=== PATIENT | male | born 1955 | race Caucasian/White ===

== ENCOUNTER 2019-09-08 17:49 | Emergency (ER) | payer BC ==
--- OUTSIDE RECORDS SUMMARY | 2019-09-08 17:51 | XMS REPORT | Summary of Care ---
:1955 Author Name SHREE MEHTA D.O. Address [facility] Unavailable , Care Team Providers Name Role Phone SHREE MEHTA D.O. 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 Start : 23-Jun-2017 Active Cephalexin 500 MG Oral Capsule TAKE 1 CAPSULE 4 TIMES DAILY UNTIL GONE. Quantity: 40 Refills: 0 SHREE MEHTA D.O. Start : 21-Oct-2017 Active Allergies and Adverse Reactions Name Dates Details Allergy history not documented Status: Procedures Procedure Dates Details Occupational Therapy Date: 21-Oct-2017 [U] XRAY WRIST MIN 3 VWS LEFT [id number] Date: 11-Dec-2017 Immunization Name Dates Details Immunizations not documented Social History Name Dates Details Unknown if ever smoked Vital Signs Date Test Result Details No Known Vitals to report Results Date Description Value Details [id number] [U] XRAY WRIST MIN 3 VWS LEFT [id number] XR WRIST MIN 3 VWS LEFT EXAM: XR WRIST MIN 3 VWS LEFT DATE: 11/18/2017 at 1034 hours. 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 COMPARISON: Left wrist radiograph on 10/21/2017. TECHNIQUE: PA, lateral and oblique radiographs of the left wrist. 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 Again seen is a DVR plate with screws and graft material for fixation of an intra-articular, mildly comminuted distal radial fracture. Alignment is overall unchanged compared to prior. A volar plate with screws is again seen at the distal ulnar shaft. Alignment is unchanged. No hardware complication is detected.A suture anchor is again seen at the distal ulna. Posttreatment changes are seen at the third metacarpal from prior dorsal spanning plate fixation. There is persistent soft tissue swelling throughout the visible extremity. IMPRESSION:Overall unchanged appearance following plate and screw fixation of the distal radius and distal ulna when compared to 10/21/2017. 11/18/2017 2:12 PM CDT Peyton Ardon Plan of Care Name Dates Details Planned Observations Planned Goals not documented Planned Encounters Appointment; SHREE MEHTA D.O. On: 16-Dec-2017 10:45 Interventions Provided Labs/Procedures/Imaging[U] XRAY WRIST MIN 3 VWS LEFT [id number]; To Be Done: 16 Dec 2017 Instructions Name Dates Details Instructions not documented Encounters Appointment; MELE STEPHENS P.A. On: 29-Jun-2017 11:00 Encounter Diagnosis: Problem not documented Appointment; SHREE MEHTA D.O. On: 13-Jul-2017 11:30 Encounter Diagnosis: Problem not documented Appointment; MELE STEPHENS P.A. On: 03-Aug-2017 11:00 Encounter Diagnosis: Problem not documented Appointment; SHREE MEHTA D.O. On: 02-Sep-2017 11:30 Encounter Diagnosis: Problem not documented Appointment; MELE STEPHENS P.A. On: 28-Sep-2017 11:15 Encounter Diagnosis: Problem not documented Appointment; SHREE MEHTA D.O. On: 05-Oct-2017 14:00 Encounter Diagnosis: Problem not documented Appointment; SHREE MEHTA D.O. On: 21-Oct-2017 13:45 Encounter Diagnosis: Problem not documented Appointment; MELE STEPHENS P.A. On: 18-Nov-2017 11:00 Encounter Diagnosis: Problem not documented Appointment; SHREE MEHTA D.O. On: 16-Dec-2017 10:45 Encounter Diagnosis: Problem not documented
--- OUTSIDE RECORDS SUMMARY | 2019-09-08 17:51 | XMS REPORT | Summary of Care ---
:1955 Author Organization [facility] - Health Address [address] [id number] Care Team Providers Name Role Phone Wilfredo Francois Primary Care Provider Encounter Details Date Type Department Care Team Description 05/12/2019 Orders Only [facility] Doctor Unassigned, No [address] [facility] Name [address] [place] [phone] [phone] Allergies Not on Filedocumented as of this encounter (statuses as of 05/12/2019) Medications Not on filedocumented as of this encounter (statuses as of 05/12/2019) Active Problems Not on filedocumented as of this encounter (statuses as of 05/12/2019) Social History Tobacco Use Types Packs/Day Years Used Date Never Assessed Sex Assigned at Date Recorded Not on file Job Start Date Occupation Industry Not on file Not on file Not on file Travel History Travel Start Travel End No recent travel history available. documented as of this encounter Last Filed Vital Signs Not on filedocumented in this encounter Plan of Treatment Health Maintenance Due Date Last Done Comments HEPATITIS C (HCV) SCREEN 1955 DTaP,Tdap,and Td Vaccines (1 - 1976 Tdap) COLONOSCOPY 2007 Zoster Recombinant Vaccine 2007 (SHINGRIX) (1 of 2) INFLUENZA VACCINE (#1) 2019 PNEUMOCOCCAL 0-64 YEARS COMBINED Aged Out No longer eligible based on SERIES patient's age to complete this topic documented as of this encounter Procedures Procedure Name Priority Date/Time Associated Diagnosis Comments [facility] PATIENT FINANCIAL Routine 05/12/2019 7:06 PM POLICY CDT NO SHOW OR MISSED Routine 05/12/2019 7:06 PM APPOINTMENT POLICY CDT ACKNOWLEDGEMENT NOTICE OF PRIVACY Routine 05/12/2019 7:05 PM PRACTICES CDT CONSENT/REFUSAL FOR Routine 05/12/2019 7:05 PM DIAGNOSIS AND TREATMENT CDT ASSIGNMENT OF BENEFITS Routine 05/12/2019 7:05 PM CDT documented in this encounter Results Not on filedocumented in this encounter Insurance Payer Benefit Plan Subscriber ID Effective Dates Phone Address Type / Group [facility] [id number] 2017-Caroline [phone] [address] PPO/POS [facility] [id number] [place] [address] documented as of this encounter Advance Directives Name Relationship Healthcare Agent Communication Relationship Kira Newell Spouse Primary healthcare agent
--- OUTSIDE RECORDS SUMMARY | 2019-09-08 17:51 | XMS REPORT ---
:1955 [facility] Address [address] [place] [address] Dr. Weiss[address] [place] [address] Care Team Providers Name Role Phone Unavailable Unavailable Unavailable Problems This patient has no known problems. Allergies, Adverse Reactions, Alerts This patient has no known allergies or adverse reactions. Medications This patient has no known medications.
--- OUTSIDE RECORDS SUMMARY | 2019-09-08 17:52 | XMS REPORT | Summary of Care ---
:1955 Author Organization [facility] Address [address] [place] [address] Care Team Providers Name Role Phone Wilfredo Francois Primary Care Provider Reason for Visit Reason Comments Toe Pain lft great toe Encounter Details Date Type Department Care Team Description 05/12/2019 Urgent Care [facility] Unknown, Attending Acute gout involving Urgent Care Jessica Aquino PA-C [address] [place] [address] [address] [place] [address] toe of left foot, [address], unspecified cause [address] (Primary Dx) [place] [address] Allergies No Known Allergiesdocumented as of this encounter (statuses as of 05/12/2019) Medications Medication Sig Dispensed Refills Start Date End Date Status naproxen 500 mg Take 1 tablet by 60 tablet 2 05/12/2019 Active tabletIndications: mouth 2 (two) Acute gout involving times daily with toe of left foot, meals. unspecified cause colchicine (COLCRYS) Take 1 tablet by 3 tablet 0 05/12/2019 Active 0.6 mg mouth daily. tabletIndications: Patient to take Acute gout involving 1.2 mg po x 1, toe of left foot, then 0.6 mg 1 hour unspecified cause later documented as of this encounter (statuses as of [...] of this encounter Last Filed Vital Signs Vital Sign Reading Time Taken Comments Blood Pressure 132/81 05/12/2019 7:26 PM CDT Pulse 83 05/12/2019 7:26 PM CDT Temperature 36.8 C (98.3 F) 05/12/2019 7:26 PM CDT Respiratory Rate 19 05/12/2019 7:26 PM CDT Oxygen Saturation 97% 05/12/2019 7:26 PM CDT Inhaled Oxygen Concentration - - Weight 100.2 kg (220 lb 12.8 oz) 05/12/2019 7:26 PM CDT Height 170.2 cm (5' 7") 05/12/2019 7:26 PM CDT Body Mass Index 34.58 05/12/2019 7:26 PM CDT documented in this encounter Patient Instructions Patient InstructionsJessica Aquino PA-C - 05/12/2019 7:00 PM CDT Gout Gout is an inflammation of a joint due to a build-up of gout crystals in the joint fluid. This occurs when there is an excessofuric acid (a normal waste product) in the body. Uric acid builds up inthe body when the kidneys are unable to filter enough of it from the blood. This may occur with age.It is also associated with kidney disease. Gout occurs more often in people with obesity, diabetes, high blood pressure,orhighlevels offats in the blood. It may run in families. Gout tends to come and go. A flare up of gout is called an attack. Drinking alcohol or eating certain foods (such asshellfish or foods with additives such as high-fructose corn syrup) may increase uric acid levels in the blood and cause a gout attack. During a gout attack, the affected joint may become a hot, red, swollen and painful. If you have hadone attack of gout, you are likely to have another. An attack of gout can be treated withmedicine.If these attacks become frequent, a daily medicine may be prescribed to help the kidneysremove uric acid from the body. Home care During a gout attack: Rest painful joints. If gout affects the joints of your foot or leg, you may want to use crutchesfor the first few days to keep from bearing weight on the affected joint. When sitting or lying down, raise the painful joint to a level higher than your heart. Apply an ice pack (ice cubes in a plastic bag wrapped in a thin towel) over the injured area for 20 minutes every 1 to 2 hours the first day for pain relief. Continue this 3 to 4 times a day for swelling and pain. Avoid alcohol and foods listed below (seePreventing attacks) during a gout attack. Drink extra fluid to help flush the uric acid through your kidneys. If you were prescribed a medicine to treat gout, take it as your healthcare provider has instructed. Don't skip doses. Takeanti-inflammatorymedicine as directed. If pain medicines have been prescribed, take them exactly as directed. Preventing attacks Minimize or avoidalcoholuse. Excess alcohol intake can cause a gout attack. Limit these foods and beverages: ? Organ meats, such as kidneys and liver ? Certain seafoods (anchovies, sardines, shrimp, scallops, doe, mackerel) ? Wild game, meat extracts and meat gravies ? Foods and beverages sweetened with high-fructose corn syrup, such as sodas Eat a healthy diet including low-fat and nonfat dairy, whole grains, and vegetables. If you areoverweight, talk to your healthcare provider about a weight reduction plan. Avoidfastingorextreme low calorie diets(less than 900 calories perday). This will increase uric acidlevels in the body. If youhave diabetesorhigh blood pressure, work with your doctor to manage these conditions. Protect the joint from injury. Trauma can trigger a gout attack. Follow-up care Follow up with your healthcare provider, or as advised. When to seek medical advice Call your healthcare provider if you have any of the following: Fever veoi815.4F (38.C)with worsening joint pain Increasing redness around the joint Pain developing in another joint Repeated vomiting, abdominal pain, or blood in the vomit or stool (black or red color) Date Last Reviewed: 11/05/201619995513-6686 [employer]. [address] [place] [address]. All rights reserved. This information is not intended as a substitute for professional medical care. Always follow your healthcare professional's instructions. Treating Gout Attacks Raising the joint above the level of your heart can help reduce gout symptoms. Gout is a disease that affects the joints. It is caused by excess uric acid in your blood that may lead to crystals forming in your joints. Left untreated, it can lead to painful foot and joint deformities and even kidney problems. But, by treating gout early, you can relieve pain and help prevent future problems. Gout can usually be treated with medicine and proper diet. In severe cases, surgery maybe needed. Gout attacks are painful and often happen more than once. Taking medicines may reduce pain and prevent attacks in the future. There are also some things you can do at home to relieve symptoms. Medicines for gout Your healthcare provider may prescribe a daily medicine to reduce levels of uric acid. Reducing youruric acid levels may help prevent gout attacks. Allopurinol is one commonly used medicine takendaily to reduce uric acid levels. Other daily medicines used to reduce uric acid levels include febuxostat , lesinurad, and probencid. Other medicines can help relieve pain and swelling during an acuteattack.Medicines such as NSAIDs (nonsteroidal anti- inflammatory medicines), steroids, and colchicine may be prescribed for intermittent use to relieve an acute gout attack. Be sure to take your medicine as directed. What you can do Below are some things you can do at home to relieve gout symptoms. Your healthcare provider may haveother tips. Rest the painful joint as much as you can. Raise the painful joint so it is at a level higher than your heart. Use ice for 10 minutes every 1 to 2 hours as possible. How can I prevent gout? With a little effort, you may be able to prevent gout attacks in the future. Here are some things you can do: Don't eat foods high in purines ? Certain meats (red meat, processed meat, turkey) ? Organ meats (kidney, liver, sweetbread) ? Shellfish (lobster, crab, shrimp, scallop, mussel) ? Certain fish (anchovy, sardine, doe, mackerel) Take any medicines prescribed by your healthcare provider. Lose weight if you need to. Reduce high fructose corn syrup in meals and drinks. Reduce or cut out alcohol, particularly beer, but also red wine and spirits. Control blood pressure, diabetes, and cholesterol. Drink plenty of water to help flush uric acid from your body. Date Last Reviewed: 12/06/201719997322-0696 [employer]. [address] [place] [address], [place] [address]. All rights reserved. This information is not intended as a substitute for professional medical care. Always follow your healthcare professional's instructions. documented in this encounter Progress Notes Jessica Aquino PA-C - 05/12/2019 7:00 PM CDT Cc: Chief Complaint Patient presents with Toe Pain lft great toe Giuseppe Newell is a 63 year old male coming in with gout flare up. Patient reports he has had these before. Patient reports it is possible he ate cheap deli meat. Patient reports he had medication in the past but ran out. Patient patient reports it is only in his left great toe where he has the pain. . HPI Allergies Giuseppe has No Known Allergies. Medications No outpatient medications prior to visit. No facility-administered medications prior to visit. Histories No past medical history on file. No past surgical history on file. Social History Socioeconomic History Marital status: Spouse name: Not on file Number of children: Not on file Years of education: Not on file Highest education level: Not on file Occupational History Not on file Social Needs Financial resource strain: Not on file Food insecurity: Worry: Not on file Inability: Not on file Transportation needs: Medical: Not on file Non-medical: Not on file Tobacco Use Smoking status: Not on file Substance and Sexual Activity Alcohol use: Not on file Drug use: Not on file Sexual activity: Not on file Lifestyle Physical activity: Days per week: Not on file Minutes per session: Not on file Stress: Not on file Relationships Social connections: Talks on phone: Not on file Gets together: Not on file Attends scientology service: Not on file Active member of club or organization: Not on file Attends meetings of clubs or organizations: Not on file Relationship status: Not on file Intimate partner violence: Fear of current or ex partner: Not on file Emotionally abused: Not on file Physically abused: Not on file Forced sexual activity: Not on file Other Topics Concern Not on file Social History Narrative Not on file No family history on file. Review of Systems Constitutional: Negative for chills, fatigue and fever. HENT: Negative for ear pain, sinus pressure and sore throat. Eyes: Negative for pain. Respiratory: Negative for chest tightness. Gastrointestinal: Negative for abdominal pain and vomiting. Genitourinary: Negative for dysuria. Musculoskeletal: Positive for gait problem and joint swelling. Negative for arthralgias. Skin: Positive for color change. Negative for rash. Neurological: Negative for weakness and headaches. Psychiatric/Behavioral: The patient is not nervous/anxious. Vital Signs BP 132/81 | Pulse 83 | Temp 36.8 C (98.3 F) (Oral) | Resp 19 | Ht 5' 7" (1.702 m) | Wt 220 lb 12.8 oz (100.2 kg) | SpO2 97% | BMI 34.58 kg/m Physical Exam Constitutional: He is oriented to person, place, and time. He appears well- developed and well-nourished. HENT: Head: Normocephalic and atraumatic. Eyes: Pupils are equal, round, and reactive to light. Conjunctivae are normal. Neck: Normal range of motion. Cardiovascular: Normal rate, regular rhythm and normal heart sounds. Pulmonary/Chest: Effort normal and breath sounds normal. Abdominal: Soft. Musculoskeletal: He exhibits edema and tenderness (L big toe). Neurological: He is alert and oriented to person, place, and time. Skin: There is erythema. Psychiatric: He has a normal mood and affect. Assessment/Plan Acute gout involving toe of left foot, unspecified cause (primary encounter diagnosis) Plan: naproxen 500 mg tablet, colchicine (COLCRYS) 0.6 mg tablet Patient education given about gout. Patient to avoid triggers. Patient to rtc if sx worsen or do not improve. This visit did not involve counseling and coordination that comprised more than 50% of the visit time. Jessica Aquino PA-C 05/12/2019 8:56 PM documented in this encounter Plan of Treatment Health Maintenance Due Date Last Done Comments HEPATITIS C (HCV) SCREEN 1955 DTaP,Tdap,and Td Vaccines (1 - 1976 Tdap) COLONOSCOPY 2007 Zoster Recombinant Vaccine 2007 (SHINGRIX) (1 of 2) INFLUENZA VACCINE (#1) 2019 PNEUMOCOCCAL 0-64 YEARS COMBINED Aged Out No longer eligible based on SERIES patient's age to complete this topic documented as of this encounter Results Not on filedocumented in this encounter Visit Diagnoses Diagnosis Acute gout involving toe of left foot, unspecified cause - Primary documented in this encounter Insurance Payer Benefit Plan Subscriber ID Effective Dates Phone Address Type / [id number] 2017-Caroline [phone] [address] PPO/POS [facility] [phone] [place] [address] (Home) [place] [address] documented as of this encounter Advance Directives Name Relationship Healthcare Agent Communication Relationship Kira Newell Spouse Primary healthcare agent
--- OUTSIDE RECORDS SUMMARY | 2019-09-08 17:52 | XMS REPORT | Summary of Care ---
:1955 Author Organization [facility] Address [address] [place] [address] Care Team Providers Name Role Phone Wilfredo Francois Primary Care Provider Reason for Visit Reason Comments Toe Pain lft great toe Encounter Details Date Type Department Care Team Description 05/12/2019 Urgent Care [facility] Unknown, Attending Acute gout involving Urgent Care Jessica Aquino PA-C [address] [place] [address] [address] [place] [address] toe of left foot, [address], unspecified cause [address] (Primary Dx) [place] [address] Allergies No Known Allergiesdocumented as of this encounter (statuses as of 05/16/2019) Medications Medication Sig Dispensed Refills Start Date [...] as of this encounter (statuses as of 05/16/2019) Active Problems Not on filedocumented as of this encounter (statuses as of 05/16/2019) Social History Tobacco Use Types Packs/Day Years [...] you have any of the following: Fever zlxy855.4F (38.C)with worsening joint pain Increasing redness around the joint Pain developing in another joint Repeated vomiting, abdominal pain, or blood in the vomit or stool (black or red color) Date Last Reviewed: 11/05/201619992489-4860 [employer]. [address] [place] [address]. All rights reserved. This information is not [...] acid from your body. Date Last Reviewed: 12/06/201719993071-1531 [employer]. [address] [place] [address], [place] [address]. All rights reserved. This information is not [...] file Gets together: Not on file Attends tenriism service: Not on file Active member of [...] if sx worsen or do not improve. - Discussed diagnosis and treatment plan with pt. All pt concerns and questions were addressed, - Pt advised to drink plenty of water/fluids & stay hydrated - Pt advised to avoid the following foods: organ meats such as liver & kidney, large amounts of beef, chicken, or pork, foods that contain high fructose corn syrup, beans, sardines, mussels, anchovies - Pt advised to avoid alcohol use especially beer as alcohol can increase uric acid in the body & make the gout medication less effective - Pt advised to use warm compresses to painful joint for 15-20 minutes 3 to 4 times per day as needed to alleviate pain - Discussed lifestyles modifications which included staying fit, tobacco/etoh cessation, maintaininga healthy body weight, and getting plenty of rest to decrease episodes of Gout attacks - AVS and Written/handout materials appropriate to problem and teaching provided. - Pt advised to follow-up with PCP in 72 hours. Stressed importance of follow up - Pt advised to return to Urgent Care or go to the nearest Emergency Department sooner for any new, worsening, persistent, or concerning symptoms - Pt verbalized understanding of all instructions This visit did not involve counseling and [...] Effective Dates Phone Address Type / Group [facility] [id number] 2017-Caroline [phone] [address] PPO/POS [place] [id number] [place] [address] documented as of this encounter Advance Directives Name Relationship Healthcare Agent Communication Relationship Kira Osiris Spouse Primary healthcare agent
--- OUTSIDE RECORDS SUMMARY | 2019-09-08 17:52 | XMS REPORT | Summary of Care ---
:1955 Author Organization [facility] Address [address] [place] [id number] Care Team Providers Name Role Phone Wilfredo Francois Primary Care Provider Reason for Visit Reason Comments Toe Pain lft great toe Encounter Details Date Type Department Care Team Description 05/12/2019 Urgent Care [facility] Unknown, Attending Acute gout involving Urgent Care Jessica Aquino PA-C [address] [place] [address] [address] [place] [address] toe of left foot, [address] [place], unspecified cause [address] (Primary Dx) [place] [address] Allergies No Known Allergiesdocumented as [...] you have any of the following: Fever vbup758.4F (38.C)with worsening joint pain Increasing redness around the joint Pain developing in another joint Repeated vomiting, abdominal pain, or blood in the vomit or stool (black or red color) Date Last Reviewed: 11/05/201619995383-3594 [employer]. [address] [place] [address]. All rights reserved. This information is not [...] acid from your body. Date Last Reviewed: 12/06/201719992369-4285 [employer]. [address] [place] [address], [place] [address]. All rights reserved. This information is not [...] file Gets together: Not on file Attends yazidi service: Not on file Active member of [...] Effective Dates Phone Address Type / Group [facility] [id number] 2017-Caroline [phone] [address] [place] [id number] [place] [address] documented as of this encounter Advance Directives Name Relationship Healthcare Agent Communication Relationship Kira Osiris Spouse Primary healthcare agent
[2019-09-08] MEDS ORDERED: NA CHLORIDE 0.9% 1,000 ML ONE (18:12)
[2019-09-08] MEDS ORDERED: ASPIRIN 81 MG CHEWABLE TABLET ONE (18:12)
[2019-09-08] MEDS ORDERED: CLOPIDOGREL 75 MG TABLET ONE (18:12)
[2019-09-08] MEDS ORDERED: FAMOTIDINE 20 MG/2 ML VIAL IV ONE (18:13)
[2019-09-08] MEDS ORDERED: HEPARIN/D5W 25,000 UNIT/500 ML BAG IV ONE (18:13)
[2019-09-08] MEDS ORDERED: TENECTEPLASE 50 MG/10 ML VIAL IV ONE (18:13)
[2019-09-08] MEDS ORDERED: HEPARIN 5000 UNIT/ML 1 ML VIAL ONE (18:13)
--- NOTE | 2019-09-08 18:22 | EDPHYS ---
Physician Documentation [facility] Name: Giuseppe Newell Age: 64 yrs Sex: Male : 1955 Arrival Date: 09/08/2019 Time: 17:50 Bed 14 Private MD: ED Physician Babar Roper HPI: 09/08 18:08 This 64 yrs old Male presents to ER via Wheelchair with complaints of Chest randa Tightness. 18:08 The patient or guardian reports chest pain that is located primarily in the substernal randa area, anterior chest wall, bilaterally. Onset: 3 hour(s) ago. The pain radiates to both arms. Associated signs and symptoms: Pertinent positives: lightheadedness, nausea, shortness of breath. The chest pain is described as a heaviness, a pressure. Duration: The patient or guardian reports a single episode, that is still ongoing. Modifying factors: The symptoms are alleviated by nothing. the symptoms are aggravated by nothing. Severity of pain: At its worst the pain was moderate in the emergency department the pain is unchanged despite home interventions. The patient has not experienced similar symptoms in the past. Historical: - Allergies: 17:58 NKA; sv - PMHx: 17:58 None; sv - PSHx: 17:58 arm; sv - Immunization history:: Adult Immunizations up to date. - Family history:: not pertinent. - Social history:: Smoking status: . - Ebola Screening: : Patient negative for fever greater than or equal to 101.5 degrees Fahrenheit, and additional compatible Ebola Virus Disease symptoms Patient denies exposure to infectious person Patient denies travel to an Ebola-affected area in the 21 days before illness onset No symptoms or risks identified at this time. ROS: 18:08 Constitutional: Negative for fever, chills, and weight loss, Eyes: Negative for injury, randa pain, redness, and discharge, ENT: Negative for injury, pain, and discharge, Neck: Negative for injury, pain, and swelling, Respiratory: Negative for shortness of breath, cough, wheezing, and pleuritic chest pain, Abdomen/GI: Negative for abdominal pain, nausea, vomiting, diarrhea, and constipation, Back: Negative for injury and pain, : Negative for injury, bleeding, discharge, and swelling, MS/Extremity: Negative for injury and deformity, Skin: Negative for injury, rash, and discoloration, Neuro: Negative for headache, weakness, numbness, tingling, and seizure, Psych: Negative for depression, anxiety, suicide ideation, homicidal ideation, and hallucinations, Allergy/Immunology: Negative for hives, rash, and allergies, Endocrine: Negative for neck swelling, polydipsia, polyuria, polyphagia, and marked weight changes, Hematologic/Lymphatic: Negative for swollen nodes, abnormal bleeding, and unusual bruising. 18:08 Cardiovascular: Positive for chest pain, of the chest. Exam: 18:08 Constitutional: This is a well developed, well nourished patient who is awake, alert, randa and in no acute distress. Head/Face: Normocephalic, atraumatic. Eyes: Pupils equal round and reactive to light, extra-ocular motions intact. Lids and lashes normal. Conjunctiva and sclera are non-icteric and not injected. Cornea within normal limits. Periorbital areas with no swelling, redness, or edema. ENT: Nares patent. No nasal discharge, no septal abnormalities noted. Tympanic membranes are normal and external auditory canals are clear. Oropharynx with no redness, swelling, or masses, exudates, or evidence of obstruction, uvula midline. Mucous membranes moist. Neck: Trachea midline, no thyromegaly or masses palpated, and no cervical lymphadenopathy. Supple, full range of motion without nuchal rigidity, or vertebral point tenderness. No Meningismus. Chest/axilla: Normal chest wall appearance and motion. Nontender with no deformity. No lesions are appreciated. Cardiovascular: Regular rate and rhythm with a normal S1 and S2. No gallops, murmurs, or rubs. Normal PMI, no JVD. No pulse deficits. Respiratory: Lungs have equal breath sounds bilaterally, clear to auscultation and percussion. No rales, rhonchi or wheezes noted. No increased work of breathing, no retractions or nasal flaring. Abdomen/GI: Soft, non-tender, with normal bowel sounds. No distension or tympany. No guarding or rebound. No evidence of tenderness throughout. Back: No spinal tenderness. No costovertebral tenderness. Full range of motion. Male : Normal genitalia with no discharge or lesions. Skin: Warm, dry with normal turgor. Normal color with no rashes, no lesions, and no evidence of cellulitis. MS/ Extremity: Pulses equal, no cyanosis. Neurovascular intact. Full, normal range of motion. Neuro: Awake and alert, GCS 15, oriented to person, place, time, and situation. Cranial nerves II-XII grossly intact. Motor strength 5/5 in all extremities. Sensory grossly intact. Cerebellar exam normal. Normal gait. Psych: Awake, alert, with orientation to person, place and time. Behavior, mood, and affect are within normal limits. 18:08 Musculoskeletal/extremity: DVT Exam: No signs of deep vein thrombosis. no pain, no swelling, no tenderness, negative Homans' sign noted on exam, no appreciated bluish discoloration, no erythema, no increased warmth. Vital Signs: 17:58 BP 168 / 100; Pulse 72; Resp 20; Temp 96.5; Pulse Ox 96% ; Weight 99.79 kg; Height 5 sv ft. 7 in. (170.18 cm); Pain 6/10; 18:10 BP 180 / 98; Pulse 76; ch 18:25 BP 182 / 106; Pulse 84; Resp 14; Pulse Ox 99% on 2 lpm NC; Pain 4/10; ch 18:40 BP 171 / 96; Pulse 70; Resp 17; Temp 98.6; Pulse Ox 99% on 2 lpm NC; ch 18:52 BP 169 / 102; Pulse 77; ch 17:58 Body Mass Index 34.46 (99.79 kg, 170.18 cm) sv MDM: 18:03 Patient medically screened. [facility] 18:10 Data reviewed: vital signs, nurses notes, lab test result(s), EKG, radiologic studies, randa plain films. 09/08 18:04 Order name: Basic Metabolic Panel; Complete Time: 18:54 [facility] 09/08 18:04 Order name: CBC with Diff; Complete Time: 18:38 [facility] 09/08 18:04 Order name: LFT's; Complete Time: 18:54 [facility] 09/08 18:04 Order name: Magnesium; Complete Time: 18:54 [facility] 09/08 18:04 Order name: NT PRO-BNP; Complete Time: 18:54 [facility] 09/08 18:04 Order name: PT-INR; Complete Time: 18:38 [facility] 09/08 18:04 Order name: Troponin (emerg Dept Use Only); Complete Time: 18:54 [facility] 09/08 18:04 Order name: XRAY Chest (1 view); Complete Time: 18:54 [facility] 09/08 19:17 Order name: Ptt, Activated rr5 09/08 18:04 Order name: EKG; Complete Time: 18:07 [facility] 09/08 18:04 Order name: Cardiac monitoring; Complete Time: 18:37 [facility] 09/08 18:04 Order name: EKG - Nurse/Tech; Complete Time: 18:30 [facility] 09/08 18:04 Order name: IV Saline Lock; Complete Time: 18:30 [facility] 09/08 18:04 Order name: Labs collected and sent; Complete Time: 18:30 [facility] 09/08 18:04 Order name: O2 Per Protocol; Complete Time: 19:58 [facility] 09/08 18:04 Order name: O2 Sat Monitoring; Complete Time: 19:58 [facility] Administered Medications: 18:15 Drug: NS 0.9% 1000 ml Route: IV; Rate: 1 bolus; Site: right hand; ch 18:50 Follow up: IV Status: Infusion continued upon transfer; IV Intake: 700ml ch 18:15 Drug: Aspirin Chewable Tablet 324 mg Route: PO; ch 19:57 Follow up: Response: No adverse reaction ch 18:15 Drug: Pepcid 20 mg Route: IVP; Site: right hand; ch 18:50 Follow up: Response: No adverse reaction ch 18:18 Drug: PlaVIX 300 mg Route: PO; ch 18:50 Follow up: Response: No adverse reaction ch 18:20 Drug: Heparin ([place]-Bolus with thrombolytic) - HEParin 60 units/kg {Co-Signature: rb1 (Yady Garnica RN).} Route: IVP; Site: right hand; 19:56 Follow up: Response: No adverse reaction ch 18:21 CANCELLED (Duplicate Order): PlaVIX 600 mg PO once randa 18:30 Drug: Tenecteplase 45 mg {Co-Signature: hb (Orly Leon RN).} Route: IV; Rate: per ch protocol; Site: right hand; 18:30 Follow up: IV Status: Completed infusion; IV Intake: 10ml ch 18:35 Drug: Heparin ([place] Drip) 12 units/kg/hr - (HEParin 47940 units, D5W 500 ml) ch {Co-Signature: hb (Orly Leon RN).} Route: IV; Rate: calculated rate; Site: right hand; 18:50 Follow up: IV Status: Infusion continued upon transfer ch 18:35 Drug: morphine 4 mg {Note: RASS 0 given by Coty MAX.} Route: IVP; Site: right hand; bb 18:50 Follow up: Response: No adverse reaction ch 18:35 Drug: Zofran 4 mg Route: IVP; Site: right antecubital; ch 18:50 Follow up: Response: No adverse reaction ch 18:46 Drug: Metoprolol 2.5 mg Route: IVP; Site: right hand; ch 18:50 Follow up: Response: No adverse reaction ch 18:56 Drug: Metoprolol 2.5 mg {Note: given by Coty MAX.} Route: IVP; Site: right hand; bb 18:57 Follow up: Response: No adverse reaction ch Disposition: 09/08/19 18:20 Transfer ordered to [facility]. Diagnosis are ST elevation (STEMI) myocardial infarction of inferior wall, Chest pain, unspecified, Essential (primary) hypertension. - Reason for transfer: Higher level of care. - Accepting physician is to dr ferrari. - Condition is Serious. - Problem is new. - Symptoms have improved. Signatures: Dispatcher [employer] EDCoty Mccray RN RN Nia Hensley RN RN sv Anderson, Corey, MD MD cha Ballard, Brenda, RN RN bb Rebecca Barber RN rb1 Heather Baxter RN Corrections: (The following items were deleted from the chart) 18:21 18:04 PlaVIX 600 mg PO once ordered. randa randa 19:29 18:20 09/08/2019 18:20 Transfer ordered to [facility]. Diagnosis is bb ST elevation (STEMI) myocardial infarction of inferior wall; Chest pain, unspecified; Essential (primary) hypertension. Reason for transfer: Higher level of care. Accepting physician is to dr ferrari. Condition is Serious. Problem is new. Symptoms have improved. randa
--- NOTE | 2019-09-08 18:22 | ER ---
Nurse's Notes [facility] Name: Giuseppe Newell Age: 64 yrs Sex: Male : 1955 Arrival Date: 09/08/2019 Time: 17:50 Bed 14 Private MD: Diagnosis: ST elevation (STEMI) myocardial infarction of inferior wall;Chest pain, unspecified;Essential (primary) hypertension Presentation: 09/08 17:57 Presenting complaint: Patient states: chest tightness across chest wall that radiates sv to both arms started about 1500, nausea, dizziness. Transition of care: patient was not received from another setting of care. Onset of symptoms was September 08, 2019 at 15:00. Risk Assessment: Do you want to hurt yourself or someone else? Patient reports no desire to harm self or others. Initial Sepsis Screen: Does the patient meet any 2 criteria? Does the patient have a suspected source of infection? No. Patient's initial sepsis screen is negative. Care prior to arrival: Medication(s) given: Tylenol, SL x2. 17:57 Method Of Arrival: Wheelchair sv 17:57 Acuity: [place] 2 sv Triage Assessment: 18:05 General: Appears in no apparent distress. comfortable, Behavior is calm, cooperative, ch appropriate for age. Pain: Complains of pain in chest. Historical: - Allergies: 17:58 NKA; sv - PMHx: 17:58 None; sv - PSHx: 17:58 arm; sv - Immunization history:: Adult Immunizations up to date. - Family history:: not pertinent. - Social history:: Smoking status: . - Ebola Screening: : Patient negative for fever greater than or equal to 101.5 degrees Fahrenheit, and additional compatible Ebola Virus Disease symptoms Patient denies exposure to infectious person Patient denies travel to an Ebola-affected area in the 21 days before illness onset No symptoms or risks identified at this time. Screenin:10 Abuse screen: Denies threats or abuse. Denies injuries from another. Nutritional ch screening: No deficits noted. Tuberculosis screening: No symptoms or risk factors identified. Fall Risk None identified. Assessment: 10:00 Reassessment: Patient appears in no apparent distress at this time. Patient and/or ch family updated on plan of care and expected duration. Pain level reassessed. Patient is alert, oriented x 3, equal unlabored respirations, skin warm/dry/pink. 18:40 Pain: Complains of pain in chest Pain does not radiate. Pain began suddenly. ch Cardiovascular: Heart tones S1 S2 present Capillary refill < 3 seconds in bilateral fingers toes. Respiratory: Airway is patent Respiratory effort is even, unlabored. 18:51 Reassessment: Patient appears in no apparent distress at this time. Patient and/or ch family updated on plan of care and expected duration. Pain level reassessed. Patient is alert, oriented x 3, equal unlabored respirations, skin warm/dry/pink. Vital Signs: 17:58 BP 168 / 100; Pulse 72; Resp 20; Temp 96.5; Pulse Ox 96% ; Weight 99.79 kg; Height 5 sv ft. 7 in. (170.18 cm); Pain 6/10; 18:10 BP 180 / 98; Pulse 76; ch 18:25 BP 182 / 106; Pulse 84; Resp 14; Pulse Ox 99% on 2 lpm NC; Pain 4/10; ch 18:40 BP 171 / 96; Pulse 70; Resp 17; Temp 98.6; Pulse Ox 99% on 2 lpm NC; ch 18:52 BP 169 / 102; Pulse 77; ch 17:58 Body Mass Index 34.46 (99.79 kg, 170.18 cm) sv ED Course: 17:50 Patient arrived in ED. as 17:58 Triage completed. sv 17:58 Arm band placed on. sv 18:02 telemetry monitor on. Pulse ox on. NIBP on. ch 18:03 Babar Roper MD is Attending Physician. randa 18:04 Missed attempt(s): 18 gauge in right antecubital area. ch 18:10 pt placed on defibrillator. ch 18:10 Inserted saline lock: 18 gauge in right hand, using aseptic technique. Blood collected. ch 18:20 Inserted saline lock: 18 gauge in right antecubital area, using aseptic technique. ch hand, using aseptic technique. 18:20 No provider procedures requiring assistance completed. Patient transferred, IV remains ch in place. Oxygen administration via nasal cannula \T\ 2L/min. 18:26 Coty Perez, WINTER is Primary Nurse. 18:28 Patient has correct armband on for positive identification. Bed in low position. Call mh5 light in reach. Side rails up X 1. Adult w/ patient. 18:28 Initial lab(s) drawn, by ED staff, sent to lab. 5 18:29 Inserted. 5 18:30 Troponin (emerg Dept Use Only) Sent. 5 18:30 PT-INR Sent. 5 18:30 NT PRO-BNP Sent. 5 18:30 Magnesium Sent. 5 18:30 LFT's Sent. 5 18:31 CBC with Diff Sent. 5 18:31 Basic Metabolic Panel Sent. 5 18:38 EKG done, by ED staff, reviewed by Babar Roper MD. 5 18:40 XRAY Chest (1 view) In Process Unspecified. EDMS Administered Medications: 18:15 Drug: NS 0.9% 1000 ml Route: IV; Rate: 1 bolus; Site: right hand; ch 18:50 Follow up: IV Status: Infusion continued upon transfer; IV Intake: 700ml ch 18:15 Drug: Aspirin Chewable Tablet 324 mg Route: PO; ch 19:57 Follow up: Response: No adverse reaction ch 18:15 Drug: Pepcid 20 mg Route: IVP; Site: right hand; ch 18:50 Follow up: Response: No adverse reaction ch 18:18 Drug: PlaVIX 300 mg Route: PO; ch 18:50 Follow up: Response: No adverse reaction ch 18:20 Drug: Heparin ([place]-Bolus with thrombolytic) - HEParin 60 units/kg {Co-Signature: rb1 ch (Yady Garnica RN).} Route: IVP; Site: right hand; 19:56 Follow up: Response: No adverse reaction ch 18:21 CANCELLED (Duplicate Order): PlaVIX 600 mg PO once randa 18:30 Drug: Tenecteplase 45 mg {Co-Signature: hb (Orly Leon RN).} Route: IV; Rate: per protocol; Site: right hand; 18:30 Follow up: IV Status: Completed infusion; IV Intake: 10ml ch 18:35 Drug: Heparin ([place] Drip) 12 units/kg/hr - (HEParin 78013 units, D5W 500 ml) ch {Co-Signature: hb (Orly Leon RN).} Route: IV; Rate: calculated rate; Site: right hand; 18:50 Follow up: IV Status: Infusion continued upon transfer 18:35 Drug: morphine 4 mg {Note: RASS 0 given by Coty MAX.} Route: IVP; Site: right hand; bb 18:50 Follow up: Response: No adverse reaction ch 18:35 Drug: Zofran 4 mg Route: IVP; Site: right antecubital; ch 18:50 Follow up: Response: No adverse reaction ch 18:46 Drug: Metoprolol 2.5 mg Route: IVP; Site: right hand; ch 18:50 Follow up: Response: No adverse reaction ch 18:56 Drug: Metoprolol 2.5 mg {Note: given by Coty MAX.} Route: IVP; Site: right hand; bb 18:57 Follow up: Response: No adverse reaction ch Intake: 18:30 IV: 10ml; Total: 10ml. ch 18:50 IV: 700ml; Total: 710ml. ch Outcome: 18:20 ER care complete, transfer ordered by . [facility] 19:00 [facility] [facility] helicopter [place] [facility]. X-rays sent w/ patient. 19:00 Condition: stable ch 19:00 Instructed on the need for transfer. 19:29 Patient left the ED. bb Signatures: Dispatcher [employer] EDMS Coty Perez, RN Nia Martin ch RN Babar Camara MD MD cha Martinez, Amelia as Ballard, Brenda, RN Kaylee Johnson [facility] Yady Garnica RN [facility] Orly Leon RN Corrections: (The following items were deleted from the chart) 19:51 18:28 Missed attempt(s): 18 gauge in right antecubital area. [facility] 19:51 18:37 Inserted saline lock: 18 gauge in right antecubital area, using aseptic ch technique. hand, using aseptic technique. [facility] 19:52 18:28 telemetry monitor on. Pulse ox on. NIBP on. [facility]
[2019-09-08 18:32] LABS: Absolute Lymphocytes (CBC) 1.7 K/uL (0.7-4.9); Basophils % 0.6 % (0-1.3); Hematocrit 43.5 % (39.6-49.0); Lymphocytes % 12.3 % (15.3-44.8); MPV 10.1 fL (7.6-11.3); RBC Red Blood Cell Count 4.97 M/uL (4.33-5.43)
[2019-09-08] MEDS ORDERED: MORPHINE 4 MG/ML SYR ONE (18:32)
[2019-09-08] MEDS ORDERED: ONDANSETRON 4 MG/2 ML VIAL ONE (18:32)
[2019-09-08 18:33] LABS: Protime INR 1.01
[2019-09-08] MEDS ORDERED: METOPROLOL TARTRATE 5 MG/5 ML INJ IV ONE (18:45)
[2019-09-08 18:46] LABS: Albumin 4.2 g/dL (3.4-5.0); Bilirubin Direct 0.1 mg/dL (0-0.2); Bilirubin Total 0.3 mg/dL (0.2-1.0); Magnesium 2.3 mg/dL (1.8-2.4); Protein, Total 7.5 g/dL (6.4-8.2); Troponin (Emerg Dept Use Only) 0.1 ng/mL (0.0-0.045)
--- NOTE | 2019-09-08 18:47 | RAD REPORT ---
EXAM DESCRIPTION: Awilda Single View09/08/2019 6:39 pm CLINICAL HISTORY: Chest pain COMPARISON: 2016 FINDINGS: The lungs appear clear of acute infiltrate. The heart is normal size IMPRESSION: No acute abnormalities displayed
[2019-09-08 19:36] VITALS: BP 171/96; TEMP 98.6; O2SAT 99
--- NOTE | 2019-09-09 06:44 | EKG ---
Test Date: 2019-09-08 Test Time: 18:00:40 Manager Internal: TOOTIE MEASUREMENT RESULTS: Intervals: Rate: 64 OR: 144 QRSD: 78 QT: 420 QTc: 433 [place]: P: 27 OR: 144 QRS: 46 T: 94 INTERPRETIVE STATEMENTS: Normal sinus rhythm ST elevation, consider inferior injury or acute infarct ACUTE [place] / STEMI Consider right ventricular involvement in acute inferior infarct Abnormal ECG Compared to ECG 06/13/2017 13:57:15 ST (T wave) deviation now present Myocardial infarct finding now present Myocardial infarct finding now present Electronically Signed On 09-09-19 06:43:28 AIR TRANSPORTATION PROVIDER by Deepak Nj
== END 2019-09-08 19:29 | disposition short-term general hospital (02) ==
LOC: ER 17:49
DX: I21.19 ST elevation (STEMI) myocardial infarction involving other coronary artery of inferior wall (principal)
CPT/HCPCS: 92977; 93005; 85025; 80048; 36415; 83735; 85610; 80076; 85730; 84484; 83880; 71045; 99285; J1644; J3101; J7030; J2405